=== PATIENT | female | born 1960 | race Caucasian/White ===

== ENCOUNTER 2018-01-01 13:52 | Inpatient (IN) | payer BC ==
[2018-01-01 14:22] LABS: ABS Basophils 0 10^3/ul (0-0.2); ABS Eosinophils 0.1 10^3/ul (0-0.6); ABS Monocytes 0.4 10^3/ul (0-0.8); ABS Neutrophils 2.4 10^3/ul (1.5-7.7); ABS Nucleated RBC 0 10^3/ul; Eosinophil % 1.7 % (0-6); Hematocrit 35 % (35-47); Hemoglobin 12.6 g/dl (12.0-16.0); Lymphocyte % 24.8 % (25-47); Mean Corpuscular HGB Conc 36 g/dl (31-36); Mean Corpuscular Hemoglobin 40 pg (27-31); Mean Corpuscular Volume 110 fL (80-97); Mean Platelet Volume 7.3 um3 (7.4-10.4); Nucleated Red Blood Cells % 0.2; Platelet Count 351 10^3/ul (150-450); Red Blood Count 3.15 10^6/ul (4.00-5.40); Red Cell Distribution Width 14 % (10.5-15); White Blood Count 3.9 10^3/ul (3.5-10.8)
[2018-01-01] MEDS ORDERED: Metoprolol Tartrate TAB* 25 MG PO ONE (14:25)
[2018-01-01] MEDS ORDERED: Aspirin 81 mg CHEW TAB* 81 MG TAB.CHEW PO ONE (14:25)
[2018-01-01] MEDS ORDERED: Nitroglycerin TAB 0.4 MG* 0.4 MG TAB SL ONE (14:25)
[2018-01-01 14:32] LABS: INR 1.09 (0.77-1.02)
[2018-01-01 14:45] LABS: EGFR Non-African American 91.7 (>60)
[2018-01-01 14:56] LABS: Urine Appearance Clear; Urine Blood Negative (Negative); Urine Color Yellow; Urine Ketones Negative (Negative); Urine Protein Negative (Negative); Urine Urobilinogen Negative (Negative)
--- NOTE | 2018-01-01 14:56 | RAD ---
INDICATION: Chest pain. COMPARISON: Comparison is made with a prior study from July 19, 2011. TECHNIQUE: A portable view of the chest was obtained. FINDINGS: Cardiac and mediastinal contours appear to be within normal limits. The lungs are clear. No pleural effusion is seen. IMPRESSION: NO EVIDENCE FOR ACUTE DISEASE.
--- NOTE | 2018-01-01 16:20 | ED ---
HPI Cardiac - HPI Summary HPI Summary: Patient is a 57 y/o F/ c/o chest pain onsetting two days ago. Patient reports that she was on a boat ride when she became upset by a conversation that she held. She felt anxious and afterwards, chest pain onset. Patient reports Hx of chest pain that is usually produced by anxiety. She takes zoloft. Patient reports some aggravation of chest pain with exertion and characterizes chest pain as a pressure. N/V is noted as well. Some SOB, diaphoresis, and dizziness is reported as well. Patient reports that she went to see the primary care physician today and after an EKG she was sent to the emergency department for further workup and management. On triage, pain is rated 4/10. In the room patient states that chest pain has lessened. PMHx includes autoimmune hepatitis , dyslipidemia,and herniated disc. FMHx of grandfather who of [place] at 70 is noted. On triage, nothing is noted to aggravate/alleviate Sx. Home medications and allergies are reviewed. - History of Current Complaint Chief Complaint: EDChestPainROMI Stated Complaint: CHEST PAIN Time Seen by Provider: 01/01/18 14:05 Hx Obtained From: Patient Onset/Duration: Started Days Ago - two days ago, Still Present Timing: Lasting Days - onset two days ago Current Severity: Moderate - 4/10 Pain Intensity: 4 Pain Scale Used: 0-10 Numeric - 4/10 Character: Pressure/Squeezing Aggravating Factor(s): Nothing Alleviating Factor(s): Nothing Associated Signs and Symptoms: Positive: Chest Pain, Dizziness, Shortness of Breath, Diaphoresis, Nausea, Vomiting - Allergy/Home Medications Allergies/Adverse Reactions: Allergies Allergy/AdvReac Type Severity Reaction Status Date / Time aspirin Allergy See Comment Verified 01/01/18 16:06 Home Medications: Home Medications Famotidine TAB* [Pepcid 20 MG TAB*] 20 mg PO DAILY 01/01/18 [History Confirmed 01/01/18] Ibuprofen TAB* [Motrin TAB* 400 MG] 400 mg PO Q6H PRN 01/01/18 [History Confirmed 01/01/18] Mercaptopurine TAB* [Purinethol TAB*] 75 mg PO DAILY 01/01/18 [History Confirmed 01/01/18] Sertraline* [Zoloft*] 25 mg PO DAILY 01/01/18 [History Confirmed 01/01/18] PMH/Surg Hx/FS Hx/Imm Hx Endocrine/Hematology History: Reports: Hx Thyroid Disease - Left side removed; lump on right side Denies: Hx Diabetes Cardiovascular History: Denies: Hx Hypertension Respiratory History: Denies: Hx Asthma, Hx Chronic Obstructive Pulmonary Disease (COPD) GI History: Denies: Hx Ulcer - Cancer History Hx Chemotherapy: No Hx Radiation Therapy: No - Surgical History Surgery Procedure, Year, and Place: 1974 Right knee - cartilege removed. 1980 - removal left fallopian tube. 1981 tubal . 1992 Thyroid - left side removed Infectious Disease History: No Infectious Disease History: Reports: Hx Hepatitis Denies: Hx Human Immunodeficiency Virus (HIV), Traveled Outside the [place] in Last 30 Days - Family History Known Family History: Negative: Blood Disorder - Social History Alcohol Use: Daily Alcohol Amount: 1-2 drinks Substance Use Type: Reports: None Smoking Status (MU): Former Smoker Review of Systems Positive: Skin Diaphoresis Positive: Chest Pain Positive: Shortness Of Breath Positive: Vomiting, Nausea Neurological: Other - dizziness All Other Systems Reviewed And Are Negative: Yes Physical Exam - Summary Physical Exam Summary: VITAL SIGNS: Reviewed. GENERAL: Patient is a well-developed and nourished female who is lying comfortable in the stretcher. Patient is not in any acute respiratory distress. HEAD AND FACE: No signs of trauma. No ecchymosis, hematomas or skull depressions. No sinus tenderness. EYES: PERRLA, EOMI x 2, No injected conjunctiva, no nystagmus. EARS: Hearing grossly intact. Ear canals and tympanic membranes are within normal limits. MOUTH: Oropharynx within normal limits. NECK: Supple, trachea is midline, no adenopathy, no JVD, no carotid bruit, no c- spine tenderness, neck with full ROM. CHEST: Symmetric, no tenderness at palpation LUNGS: Clear to auscultation bilaterally. No wheezing or crackles. CVS: Regular rate and rhythm, S1 and S2 present, no murmurs or gallops appreciated. ABDOMEN: Soft, non-tender. No signs of distention. No rebound no guarding, and no masses palpated. Bowel sounds are normal. EXTREMITIES: FROM in all major joints, no edema, no cyanosis or clubbing. NEURO: Alert and oriented x 3. No acute neurological deficits. Speech is normal and follows commands. SKIN: Dry and warm Triage Information Reviewed: Yes Vital Signs On Initial Exam: Initial Vitals Temp Pulse Resp BP Pulse Ox 99.1 F 70 16 167/92 100 01/01/18 13:53 01/01/18 13:53 01/01/18 13:53 01/01/18 13:53 01/01/18 13:53 Vital Signs Reviewed: Yes Diagnostics - Vital Signs Vital Signs Temp Pulse Resp BP Pulse Ox 01/01/18 14:23 100 01/01/18 14:16 18 01/01/18 13:53 99.1 F 70 16 167/92 100 - Laboratory Lab Results: Lab Results 01/01/18 01/01/18 01/01/18 Range/Units 14:09 14:09 14:09 WBC 3.9 (3.5-10.8) 10^3/ul RBC 3.15 L (4.00-5.40) 10^6/ul Hgb 12.6 (12.0-16.0) g/dl Hct 35 (35-47) % MCV 110 H (80-97) fL MCH 40 H (27-31) pg MCHC 36 (31-36) g/dl RDW 14 (10.5-15) % Plt Count 351 (150-450) 10^3/ul MPV 7.3 L (7.4-10.4) um3 Neut % (Auto) 62.3 (38-83) % Lymph % (Auto) 24.8 L (25-47) % [place] % (Auto) 10.6 H (0-7) % Eos % (Auto) 1.7 (0-6) % Baso % (Auto) 0.6 (0-2) % Absolute Neuts (auto) 2.4 (1.5-7.7) 10^3/ul Absolute Lymphs (auto) 1.0 (1.0-4.8) 10^3/ul Absolute Monos (auto) 0.4 (0-0.8) 10^3/ul Absolute Eos (auto) 0.1 (0-0.6) 10^3/ul Absolute Basos (auto) 0 (0-0.2) 10^3/ul Absolute Nucleated RBC 0 10^3/ul Nucleated RBC % 0.2 INR (Anticoag Therapy) 1.09 H (0.77-1.02) APTT 30.4 (26.0-36.3) seconds Sodium 136 (135-145) mmol/L Potassium 3.5 (3.5-5.0) mmol/L Chloride 105 (101-111) mmol/L Carbon Dioxide 26 (22-32) mmol/L Anion Gap 5 (2-11) mmol/L BUN 16 (6-24) mg/dL Creatinine 0.66 (0.51-0.95) mg/dL Est GFR ( Amer) 110.9 (>60) Est GFR (Non-Af Amer) 91.7 (>60) BUN/Creatinine Ratio 24.2 H (8-20) Glucose 116 H (70-100) mg/dL Lactic Acid (0.5-2.0) mmol/L Calcium 10.6 H (8.6-10.3) mg/dL Magnesium 1.7 L (1.9-2.7) mg/dL Total Bilirubin 0.70 (0.2-1.0) mg/dL AST 67 H (13-39) U/L ALT 54 H (7-52) U/L Alkaline Phosphatase 74 (34-104) U/L Total Creatine Kinase 463 H (10-223) U/L CK-MB (CK-2) 16.8 H (0.6-6.3) ng/mL Troponin I 2.56 H* (<0.04) ng/mL B-Natriuretic Peptide ( - 100) pg/mL Total Protein 8.8 (6.4-8.9) g/dL Albumin 4.3 (3.2-5.2) g/dL Globulin 4.5 H (2-4) g/dL Albumin/Globulin Ratio 1.0 (1-3) Triglycerides Pending Cholesterol Pending LDL Cholesterol Pending HDL Cholesterol Pending TSH 0.76 (0.34-5.60) mcIU/mL Urine Color Urine Appearance Urine pH (5-9) Ur Specific [place] (1.010-1.030) Urine Protein (Negative) Urine Ketones (Negative) Urine Blood (Negative) Urine Nitrate (Negative) Urine Bilirubin (Negative) Urine Urobilinogen (Negative) Ur Leukocyte Esterase (Negative) Urine Glucose (Negative) 01/01/18 01/01/18 01/01/18 Range/Units 14:09 14:09 14:42 WBC (3.5-10.8) 10^3/ul RBC (4.00-5.40) 10^6/ul Hgb (12.0-16.0) g/dl Hct (35-47) % MCV (80-97) fL MCH (27-31) pg MCHC (31-36) g/dl RDW (10.5-15) % Plt Count (150-450) 10^3/ul MPV (7.4-10.4) um3 Neut % (Auto) (38-83) % Lymph % (Auto) (25-47) % [place] % (Auto) (0-7) % Eos % (Auto) (0-6) % Baso % (Auto) (0-2) % Absolute Neuts (auto) (1.5-7.7) 10^3/ul Absolute Lymphs (auto) (1.0-4.8) 10^3/ul Absolute Monos (auto) (0-0.8) 10^3/ul Absolute Eos (auto) (0-0.6) 10^3/ul Absolute Basos (auto) (0-0.2) 10^3/ul Absolute Nucleated RBC 10^3/ul Nucleated RBC % INR (Anticoag Therapy) (0.77-1.02) APTT (26.0-36.3) seconds Sodium (135-145) mmol/L Potassium (3.5-5.0) mmol/L Chloride (101-111) mmol/L Carbon Dioxide (22-32) mmol/L Anion Gap (2-11) mmol/L BUN (6-24) mg/dL Creatinine (0.51-0.95) mg/dL Est GFR ( Amer) (>60) Est GFR (Non-Af Amer) (>60) BUN/Creatinine Ratio (8-20) Glucose (70-100) mg/dL Lactic Acid 0.7 (0.5-2.0) mmol/L Calcium (8.6-10.3) mg/dL Magnesium (1.9-2.7) mg/dL Total Bilirubin (0.2-1.0) mg/dL AST (13-39) U/L ALT (7-52) U/L Alkaline Phosphatase (34-104) U/L Total Creatine Kinase (10-223) U/L CK-MB (CK-2) (0.6-6.3) ng/mL Troponin I (<0.04) ng/mL B-Natriuretic Peptide 307 H ( - 100) pg/mL Total Protein (6.4-8.9) g/dL Albumin (3.2-5.2) g/dL Globulin (2-4) g/dL Albumin/Globulin Ratio (1-3) Triglycerides Cholesterol LDL Cholesterol HDL Cholesterol TSH (0.34-5.60) mcIU/mL Urine Color Yellow Urine Appearance Clear Urine pH 6.0 (5-9) Ur Specific [place] 1.010 (1.010-1.030) Urine Protein Negative (Negative) Urine Ketones Negative (Negative) Urine Blood Negative (Negative) Urine Nitrate Negative (Negative) Urine Bilirubin Negative (Negative) Urine Urobilinogen Negative (Negative) Ur Leukocyte Esterase Negative (Negative) Urine Glucose Negative (Negative) Result Diagrams: 01/01/18 14:09 01/01/18 14:09 Lab Statement: Any lab studies that have been ordered have been reviewed, and results considered in the medical decision making process. - Radiology CXR Xray Interpretation: No Acute Changes Radiology Interpretation Completed By: Radiologist - no evidence for active disease, this report was reviewed by ed physician - EKG 1402 Cardiac Rate: NL - rate of 70 BPM EKG Rhythm: Sinus Rhythm EKG Interpretation: ? of STelevation @ v2 but w/ Qwaves in v1,2,3 and Twave inversion lead1,aVL 1420 Cardiac Rate: NL - rate of 63 BPM EKG Rhythm: Sinus Rhythm EKG Interpretation: STelevation in v2,3,4,5 but w/ Qwaves in V2,3 and Twave inversion lead1,aVL Re-Evaluation - Re-Evaluation First Eval Re-Evaluation Time: 14:50 Change: Unchanged Comment: patient declines aspirin. Second Eval Re-Evaluation Time: 15:10 Change: Improved Comment: Patient's chest pain is reported to have resolved. Third Eval Re-Evaluation Time: 16:55 Change: Unchanged Comment: Patient informed of decision to admit to [facility] for further workup; patient is agreeable with this plan. Disposition - Course Assessment/Plan: This patient is a 57-year-old female with past medical history significant for autoimmune hepatitis, dyslipidemia,and herniated disc presents to the emergency department with a chief complaint of having chest pain since two days ago. Patient reports that the pain is a pressure-like pain and is experiencing nausea and vomiting and occasional shortness of breath and dizziness. Patient reports that she went to see the primary care physician today and after an EKG she was sent to the emergency department for further workup and management. At arrival to the emergency department the patient reports that the pain is lessening. Vital signs are stable. The patient was placed on a hospital monitor. The patient was given aspirin and nitroglycerin and Lopressor. First EKG shows questionable ST elevation in V2 but the patient already has Q waves in V1 and V2 and V3 with T-wave inversion in aVL and lead I. After was brought into a room in the ER emergency department room, I repeated an EKG and showed an ST elevations in V2 and V3 V4 and V5. However the patient shows an Q waves in V2 and V3. The patient also has inverted T- wave in lead 1 and aVL. At this time I discussed the case with Dr. Christianson and he will review the EKGs. Blood work shows glucose of 116, calcium 10.6, magnesium 1.7, AST 60 7/18/54 troponin of 2.56 and BNP of 307. Urinalysis is negative for UTI. Chest x-ray impression: No evidence for acute disease. After the patient was given nitroglycerin she reports pain subsided. After Dr. Christianson assess the patient he recommends for the patient to be admitted to the hospital services. I discussed my physical exam and findings with Dr. Way from the hospital services were accepted the patient for admission. - Differential Dx - Cardiopulmonary Differential Diagnoses - Cardiopulmonary: Acute Coronary, CAD, Cardiomyopathy, CHF, Chest Wall Pain - Diagnoses Provider Diagnoses: STEMI (ST elevation myocardial infarction) - Physician Notifications Discussed Care Of Patient With: Aimee Christianson Time Discussed With Above Provider: 14:28 Instructed by Provider To: Other - Patient's case was discussed with Dr. Christianson at 1428. He will come to see patient in person. 1453 -- Dr. Christianson has arrived in ED, he will evaluate patient at bedside. 1539 -- patient reports relief from chest pain, Dr. Christianson recommends admission of patient to [facility]. 1643 -- Patient' s case was discussed with Dr. Way, she accepts patient for admission to [facility]. - Critical Care Time Critical Care Time: 75-104 min Discharge - Sign-Out/Discharge Documenting (check all that apply): Patient Departure - admit - Discharge Plan Condition: Good Disposition: ADMITTED TO [facility] - Billing Disposition and Condition Condition: GOOD Disposition: Admitted to [facility] - Attestation Statements Document Initiated by Scribe: Yes Documenting Scribe: Edy Castro Provider For Whom Ray is Documenting (Include Credential): Keith Yousif MD Scribe Attestation: IEdy, scribed for Keith Yousif MD on 01/01/18 at 1850. Scribe Documentation Reviewed: Yes Provider Attestation: The documentation as recorded by the Edy norris accurately reflects the service I personally performed and the decisions made by me, Keith Yousif MD
--- NOTE | 2018-01-01 17:07 | ECHO ---
Patient: FRANCISCO CALLE [facility] Rec#: [id number] : 1960 Date: 01/01/2018 Age: 57y Height: 165 cm / 65.0 in Weight: 68.49 kg / 151.0 lbs Sex: F BSA: 1.75 Room#: -7 Admit Date#: 01/01/2018 Type: Inpatient Referring: Aimee Christianson MD Reading: Cl Ernst MD [employer]: L[facility] M[facility]UN[facility] Transthoracic Echocardiogram Indication: Myocardial Infarction BP: 167/92 HR: 53 Rhythm: Bradycardia Findings History: Anxiety, recent few days of chest discomfort. Technical Comments: The study quality is good. Completed at 1700. Left Ventricle: The left ventricular chamber size is normal. There is no left ventricular hypertrophy. There are multiple regional wall motion abnormalities. There is moderately decreased left ventricular systolic function. The estimated ejection fraction is 30-35%. Abnormal left ventricular diastolic function is observed. Abnormal left ventricular diastolic filling is observed, consistent with impaired relaxation. The mid anterior, apical septal, apical lateral, and apical inferior wall segments are hypokinetic (score 2). The apical anterior wall segment is akinetic (score 3). Overall wallmotion score index is 2.20 Left Atrium: The left atrium is mildly dilated. Right Ventricle: Moderator Band present. The right ventricular cavity size is normal. The right ventricular global systolic function is normal. Right Atrium: The right atrial cavity size is normal. Aortic Valve: The aortic valve is trileaflet. There is no evidence of aortic valve thickening. There is a trace of aortic regurgitation. There is no evidence of aortic stenosis. Mitral Valve: The mitral valve leaflets are mildly thickened. There is mild mitral regurgitation. There is no evidence of mitral stenosis. Tricuspid Valve: The tricuspid valve leaflets are normal. There is mild tricuspid regurgitation. The right ventricular systolic pressure is estimated at 42 mmHg. There is evidence of mild pulmonary hypertension. There is no tricuspid stenosis. Pulmonic Valve: The pulmonic valve appears normal. There is a trace pulmonic regurgitation. There is no pulmonic stenosis. Pericardium: There is no significant pericardial effusion. Aorta: There is mild dilatation of the ascending aorta. There is no dilatation of the aortic arch. The aortic root is normal in size. Pulmonary Artery: The main pulmonary artery appears normal. Venous: The inferior vena cava is dilated. There is a greater than 50% respiratory change in the inferior vena cava dimension. Summary: There was not any prior study for comparison. Conclusions There is no left ventricular hypertrophy. There is moderately decreased left ventricular systolic function. The estimated ejection fraction is 30-35%. Abnormal left ventricular diastolic filling is observed, consistent with impaired relaxation. The mid anterior, apical septal, apical lateral, and apical inferior wall segments are hypokinetic (score 2). The apical anterior wall segment is akinetic (score 3). The right ventricular global systolic function is normal. There is a trace of aortic regurgitation. There is mild mitral regurgitation. There is mild tricuspid regurgitation. The right ventricular systolic pressure is estimated at 42 mmHg. There is no significant pericardial effusion. Measurements Name Value Normal Range RVIDd (AP) 2D 2.7 cm (0.9 - 2.6) RVDdMajor (2D) 3.8 cm (2.2 - 4.4) RAd ISD 4CH 4.9 cm (3.4 - 4.9) RA (A4C)W 4.4 cm (2.9 - 4.6) IVSd (2D) 0.9 cm (0.6 - 1) LVPWd (2D) 0.8 cm (0.6 - 1) LVIDd (2D) 5 cm (3.6 - 5.4) LVIDs (2D) 3.6 cm - LV FS (2D) 27 % (25 - 45) Aortic Annulus 2.1 cm (1.4 - 2.6) Ao root diameter (2D) 3 cm (2.1 - 3.5) Ascending Ao 3.6 cm (2.1 - 3.4) Aortic arch 2.5 cm (1.8 - 3.4) LA dimension (AP) 2D 3.9 cm (2.3 - 3.8) LAd ISD 4CH 5.3 cm (2.9 - 5.3) LA ISD 4CH W 4.8 cm (2.5 - 4.5) Name Value Normal Range LA ESV BP (A/L) index 35 ml/m2 - Name Value Normal Range MV E-wave Vmax 0.6 m/sec - MV deceleration time 317 msec - MV A-wave Vmax 0.7 m/sec - MV E:A ratio 0.8 ratio - LV septal e' Vmax 0.06 m/sec - LV lateral e' Vmax 0.07 m/sec - LV E:e' septal ratio 10 ratio - LV E:e' lateral ratio 8.57 ratio - Name Value Normal Range AV Vmax 1.3 m/sec - AV VTI 26.2 cm - AV peak gradient 7 mmHg - AV mean gradient 3 mmHg - LVOT Vmax 0.9 m/sec - LVOT VTI 19.7 cm - LVOT peak gradient 3 mmHg - LVOT mean gradient 2 mmHg - BROOKE Vmax 0.7 m/sec - Name Value Normal Range TR Vmax 2.9 m/sec - TR peak gradient 34 mmHg - RAP 8 mmHg - RVSP 42 mmHg - IVC diameter 2.1 cm - Name Value Normal Range PV Vmax 0.8 m/sec - PV peak gradient 2 mmHg - Wallmotion BAS Not Seen BA Not Seen BAL Not Seen ENE Not Seen BI Not Seen BIS Not Seen MAS Not Seen MA Hypokinetic MAL Not Seen MIL Not Seen W[place] Not Seen MIS Not Seen Hypokinetic AA Akinetic AL Hypokinetic AI Hypokinetic APEX Akinetic
[2018-01-01] MEDS ORDERED: Acetaminophen TAB* 325 MG PO PRN (17:44)
[2018-01-01] MEDS ORDERED: Al Hydrox/Mg Hydrox/Simet LIQ* 30 ML UDC PO PRN (17:44)
[2018-01-01] MEDS ORDERED: Temazepam CAP* 15 MG PO PRN (17:44)
[2018-01-01] MEDS ORDERED: Morphine VIAL* 4 MG/ML VIAL (1 ml vial) IV PRN (17:44)
[2018-01-01] MEDS: Metoprolol Tartrate TAB* 25 MG PO SCH (19:47)
[2018-01-01] MEDS: Enoxaparin(*) 80 MG/0.8 ML SYR SUBCUT SCH (20:17)
[2018-01-01] MEDS: Captopril TAB* 12.5 MG PO SCH ×2 (20:18→22:18)
--- NOTE | 2018-01-01 22:14 | HP ---
CC: Dr. Christianson; Dr. Monge; Dr. Pruett, Gastroenterology; Dr. Gurrola * HISTORY AND PHYSICAL: DATE OF ADMISSION: 01/01/18 PRIMARY CARE PROVIDER: Dr. Shannan Gurrola. CHIEF COMPLAINT: Chest pain. HISTORY OF PRESENT ILLNESS: Kellie Key is a 57-year-old female with history of autoimmune hepatitis, who stated that she had chest pains when she was on a boat ride with her boyfriend 2 days ago. She states that she was relaxing on the boat, all of a sudden she started developing substernal pressure. It felt like an ache, lasted several hours. She denied any shortness of breath or diaphoresis with it. She stated that once she felt sick in the stomach and she vomited once. The pain resolved spontaneously, but she felt somewhat out of source for the next 2 days and she went to see her primary care provider where the EKG was performed and was abnormal, and she was sent directly to the ED for evaluation. Today, the patient stated that she had some "mild pressure" in the substernal area. Her EKG showed ST elevation. She was seen by Dr. Christianson, who noted that the patient's W[place] likely occurred 2 days ago. The patient is going to be placed in the intensive care unit with a diagnosis of myocardial infarction. PAST MEDICAL AND SURGICAL HISTORY: 1. Autoimmune hepatitis, diagnosed in 2007, on 6-mercaptopurine. 2. History of partial thyroidectomy due to abnormal thyroid nodule. 3. History of varicose vein surgery. 4. History of ectopic surgery in . MEDICATIONS: At home include: 1. Ibuprofen on a p.r.n. basis. 2. Zoloft 25 mg daily. 3. Pepcid 20 mg daily. 4. Mercaptopurine 75 mg daily. ALLERGIES: The patient listed ASPIRIN as an allergy. She had nosebleed when she was on BABY ASPIRIN in the past. FAMILY HISTORY: Positive for father with prostate cancer, grandfather with colon cancer. SOCIAL HISTORY: The patient denies any significant alcohol use. She quit smoking in 2013 and she has a history of smoking from the age of 14 to the age of 52, one pack per day. She denies any drug use. 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 She is a , has a boyfriend, who is her surrogate. Her boyfriend' s name is Brody Price. REVIEW OF SYSTEMS: Please see history of present illness. The patient stated that she noted that her exercise tolerance was lower than usual and she "really did not exercise" over the summer. She stated that taking care of her own business is a pretty stressful for her. She stated that the chest pain she actually had 2 days ago, had been occurring for the past several years. Her in 2013 and she has had chest pains even when he was still alive. She always attributed it to anxiety attacks. She denies those pains occurring with exercise. In regards to her autoimmune hepatitis, her liver function tests level have been controlled with 6-mercaptopurine. Her motor equipment commanding officer is Dr. Monge. All the remaining 12 systems were reviewed with the patient and were otherwise negative. PHYSICAL EXAMINATION GENERAL: The patient is very pleasant 57-year-old female, who is in no acute distress. Alert, awake, and oriented x3. VITAL SIGNS: Blood pressure of 138/82, heart rate of 52 and regular, respiratory rate of 17, oxygen saturation 98% on room air, temperature of 99.1. HEENT: Head: Atraumatic, normocephalic. Eyes: Pupils are equal, reactive to light and accommodation. Oropharynx clear. Mucosa moist. NECK: Supple. No JVD. No bruits bilaterally. RESPIRATORY: Clear to auscultation bilaterally. CARDIOVASCULAR: Regular rate and rhythm. No murmur. ABDOMEN: Soft, nontender. Bowel sounds are present in all 4 quadrants. EXTREMITIES: There is no edema. Pulses are +2 bilaterally. No clubbing or cyanosis. NEUROLOGIC: Speech is clear. Cranial nerves II through XII grossly intact. Motor strength is 5/5 bilaterally. SKIN: On evaluation of the skin, no ecchymotic areas or rashes noted. PSYCHIATRIC: Alert and oriented x3 with no evidence of anxiety or depression. DIAGNOSTIC STUDIES/LAB DATA: Sodium of 136, potassium 3.5, chloride 105, carbon dioxide 26, BUN 16, creatinine 0.66. AST of 67, ALT of 54, alkaline phosphatase of 74, total CPK of 463, CK-MB 16.8. Troponin of 2.5. Brain natriuretic peptide was 307. Cholesterol profile showed total cholesterol of 211, LDL of 146, HDL of 50.2, TSH of 0.76. White blood cell count of 3.9, hemoglobin of 12.6, hematocrit 35, MCV of 110, and platelets of 361. Urinalysis is unremarkable. The patient's transthoracic echocardiogram shows EF of 30% to 35%. The patient's portable chest x-ray, impression "no evidence of acute disease." The patient's EKG showed ST elevations, normal sinus rhythm with a heart rate of 64 beats per minute with ST elevations in leads V2, V3, and V4. ASSESSMENT AND PLAN: 1. Acute myocardial infarction. It appears that the patient had the worst chest pains 2 days ago. The patient was seen by the cutter head sharpener , Dr. Christianson, who recommended admission for the patient to the hospital with anticoagulation with Lovenox. The patient was recommended to use aspirin. She stated that she had nosebleeds "all the time" when on aspirin. Nevertheless, she never required any surgical intervention or ENT evaluation due to that. At this point, we will watch her closely for epistaxis, but for the time being she is going to be placed on aspirin as well as Lovenox. As per Cardiology, the patient was also started on beta-ramsey every 8 hours and captopril. It is concerning that the patient's EF now is 35%. At this point, there are no symptoms or signs of congestive heart failure. 2. In regards to the patient's autoimmune hepatitis, the patient's 6- mercaptopurine is going to be continued. 3. In regards to the depression, her Zoloft is going to be continued. 4. For her dyslipidemia, I discussed the case with the motor equipment commanding officer on- call. Due to the patient's autoimmune hepatitis, it was advised to start Lipitor at low dose of 20 mg nightly, and if the patient's LFTS continued to be unchanged in a week, the patient's Lipitor can be titrated. 5. For DVT prophylaxis, the patient is going to be placed on Lovenox as mentioned above. 6. The patient's code status is full. Her surrogate is her boyfriend, Mr. Price. TIME SPENT: Approximately 70 minutes were spent on admission of this patient, more than half of that time was spent [id number] with the patient during the interview and physical exam. [id number]/[facility] #: [id number] [facility]
--- NOTE | 2018-01-02 00:09 | CONS ---
CC: Dr. Shannan Gurrola * INTERVENTIONAL CARDIOLOGY CONSULT NOTE: DATE OF CONSULT: 01/01/18 PRIMARY CARE PHYSICIAN: Dr. Shannan Gurrola. HISTORY OF PRESENT ILLNESS: A 57-year-old woman presenting to the ER with recent anterior wall infract. Interventional Cardiology was consulted. She is an excellent historian. She relates that she has had recurring episodes of chest pain for some 10 years that she has attributed to anxiety, sometimes these would involve radiation to the jaw. On 12/30/17, 2 days ago, in the afternoon, she developed pericardial chest pressure with radiation into the jaw and some numbness in her left arm, she had nausea, vomiting, she thought it was her usual anxiety- related chest pain and did not seek medical attention. Her chest pain persisted most of the evening. The next day, on Sunday, she had a very mild chest pressure with a dull discomfort, which persisted most of the day , but did not interfere with activities. She was not short of breath, weak. She called to obtain a referral to Cardiology and was given an appointment to see Dr. Gurrola today. She saw Dr. Gurrola today and EKG today showed septal infract with QS in V1 through V3 with T- wave inversion in I and aVL, she was referred to the ER. Today, she has been chest pain free. She gives a history of having had pericarditis x3, per her history diagnosed in 1995 with a rub. She thinks she has had an echo subsequently, but none are in [facility]. She is unaware of having a previous EKG. She also has autoimmune hepatitis, on mercaptopurine; history of hyperlipidemia with an LDL of 147 last July; previous carotid bruits with Duplex here in 2013, read as suggesting possible left subclavian artery steal. She, however, has no symptoms to suggest left arm related steal phenomenon. She also has thyroid nodules and has had a partial thyroidectomy. She has not had palpitations or syncope, has a history of localized varicose vein removal, no history of peripheral edema. PAST MEDICAL HISTORY: Autoimmune hepatitis, hyperlipidemia, thyroid nodules, carotid bruit with apparently suggestion of left subclavian steal, although this is asymptomatic, GERD. SOCIAL HISTORY: She is . She stopped smoking 3 years ago. She has a significant other. FAMILY HISTORY: Positive for premature coronary artery disease. ALLERGIES: To LATEX TAPE, and SULFA. PRE-HOSPITAL MEDICATIONS: 1. Pepcid. 2. Mercaptopurine 75 mg daily. REVIEW OF SYSTEMS: General: No weight loss. No fever. CUFF CUTTER: No history of TIA or CVA. GI: No peptic ulcer disease or bleeding, notable for autoimmune hepatitis. Endocrine: No history of diabetes. Remainder all negative. PHYSICAL EXAM: In the ER, she is pain free, articulate, comfortable, an excellent historian. Her presenting BP in the ER 167/97, heart rate in the 60s to 70s. Her lungs are clear to percussion and auscultation. JVP is normal at 6. Neck is supple. HEENT is normal without xanthelasma, scleral injection, or jaundice. EOMs are normal. Cranial nerves grossly intact. Carotids are palpable , she does have a left carotid bruit or transmitted murmur. Cardia Exam: Rhythm is regular, no gallop, murmur, or rub. I cannot feel the apical impulse or RV. Abdomen: Soft, nontender. No bruits, I cannot feel the aorta. No masses. No ascites. Femoral pulses are palpable. No bruits. Radial pulses are palpable. Pedal pulses are palpable. She has no cyanosis, clubbing, or edema. Skin is warm and perfused. Psych: She is oriented and appropriate. DIAGNOSTIC STUDIES/LAB DATA: EKG shows recent septal infract with QS pattern in V1 through V3 and T-wave inversion in I and aVL. Her hemoglobin is 12.6, MCV 110. Platelet count normal. BMP normal. SGOT 67, SGPT 54. Her CPK is elevated at 463 with an MB of 16.8, troponin 2.56. BNP is elevated at 307. Chest x-ray by my review shows no infiltrate or heart failure. IMPRESSION AND PLAN: 1. Anteroseptal infract. By history, this occurred on Sunday, she will be admitted for telemetry monitoring, started on beta-blockade as well as afterload reduction. We will measure LV function with echo, trend her enzymes to ascertain the size of her infract. She may need viability imaging. Even though she has autoimmune hepatitis, her LDL is high, she would benefit from a statin. I will discuss with them further plans based on test results. 2. Autoimmune hepatitis. 3. History of thyroid nodules. 4. Left carotid bruit, apparently without obstruction in 2013. [id number]/[facility] #: [id number] [facility]TD[facility]
[2018-01-02] MEDS: Metoprolol Tartrate TAB* 25 MG PO SCH ×2 (01:50→11:16)
[2018-01-02] MEDS: Enoxaparin(*) 80 MG/0.8 ML SYR SUBCUT SCH (05:44)
[2018-01-02 06:01] LABS: ABS Basophils 0 10^3/ul (0-0.2); ABS Eosinophils 0.1 10^3/ul (0-0.6); ABS Lymphocytes 1.3 10^3/ul (1.0-4.8); ABS Monocytes 0.4 10^3/ul (0-0.8); ABS Neutrophils 1.3 10^3/ul (1.5-7.7); ABS Nucleated RBC 0 10^3/ul; Eosinophil % 2.4 % (0-6); Hematocrit 31 % (35-47); Hemoglobin 11.2 g/dl (12.0-16.0); Lymphocyte % 40.8 % (25-47); Mean Corpuscular HGB Conc 36 g/dl (31-36); Mean Corpuscular Hemoglobin 40 pg (27-31); Mean Corpuscular Volume 111 fL (80-97); Nucleated Red Blood Cells % 0.1; Platelet Count 315 10^3/ul (150-450); Red Cell Distribution Width 14 % (10.5-15); White Blood Count 3.1 10^3/ul (3.5-10.8)
[2018-01-02 06:15] LABS: EGFR Non-African American 126.3 (>60)
[2018-01-02] MEDS: Sertraline* 25 MG TAB PO SCH (08:56)
[2018-01-02] MEDS: Mercaptopurine TAB* 50 MG PO SCH (08:56)
[2018-01-02] MEDS: Famotidine TAB* 20 MG PO SCH (08:56)
[2018-01-02] MEDS: Aspirin 81 mg CHEW TAB* 81 MG TAB.CHEW PO SCH (09:20)
[2018-01-02] MEDS ORDERED: Pneumococcal *Vac Polyvalent 0.5 ML VIAL IM ONE (10:00)
[2018-01-02] MEDS: Captopril TAB* 12.5 MG PO SCH ×3 (11:20→21:05)
--- NOTE | 2018-01-02 12:23 | PN ---
Subjective Date of Service: 01/02/18 Interval History: Pt had an episode of CP last night, relieved by Nitro SL. Thought it was due to anxiety. NPO this AM for cath today Objective Active Medications: Acetaminophen (Tylenol Tab*) 650 mg PO Q4H PRN PRN Reason: FEVER/PAIN Last Admin: 01/02/18 01:28 Dose: 650 mg Al Hydrox/Mg Hydrox/Simethicone (Maalox Plus*) 30 ml PO Q6H PRN PRN Reason: INDIGESTION Aspirin (Aspirin 81 Mg Chew Tab*) 81 mg PO DAILY [facility] Last Admin: 01/02/18 09:20 Dose: Not Given Atorvastatin Calcium (Lipitor*) 20 mg PO 1700 [facility] Captopril (Capoten Tab*) 6.25 mg PO TID [facility] Last Admin: 01/02/18 11:20 Dose: 6.25 mg Enoxaparin Sodium (Lovenox(*)) 70 mg SUBCUT Q12H [facility] Last Admin: 01/02/18 05:44 Dose: 70 mg Famotidine (Pepcid Tab*) 20 mg PO DAILY [facility] Last Admin: 01/02/18 08:56 Dose: 20 mg Mercaptopurine (Purinethol Tab*) 75 mg PO DAILY [facility] Last Admin: 01/02/18 08:56 Dose: 75 mg Metoprolol Tartrate (Lopressor Tab*) 25 mg PO Q8H [facility] Last Admin: 01/02/18 11:16 Dose: Not Given Morphine Sulfate (Morphine Vial*) 1 mg IV Q4H PRN PRN Reason: PAIN - MILD Sertraline HCl (Zoloft*) 25 mg PO DAILY [facility] Last Admin: 01/02/18 08:56 Dose: 25 mg Temazepam (Restoril Cap*) 15 mg PO BEDTIME PRN PRN Reason: INSOMNIA Last Admin: 01/02/18 01:28 Dose: 15 mg Vital Signs - 8 hr 01/02/18 01/02/18 01/02/18 05:00 05:28 06:00 Temperature Pulse Rate 42 44 Respiratory 11 18 17 Rate Blood Pressure 90/64 113/70 (mmHg) O2 Sat by Pulse 96 95 Oximetry 01/02/18 01/02/18 01/02/18 07:00 08:00 08:01 Temperature 98.4 F Pulse Rate 45 46 45 Respiratory 15 16 18 Rate Blood Pressure 90/58 98/49 (mmHg) O2 Sat by Pulse 94 96 96 Oximetry 01/02/18 01/02/18 01/02/18 09:00 09:01 10:00 Temperature Pulse Rate 47 46 50 Respiratory 17 19 12 Rate Blood Pressure 124/66 (mmHg) O2 Sat by Pulse 100 96 89 Oximetry 01/02/18 11:00 Temperature Pulse Rate 49 Respiratory 17 Rate Blood Pressure 124/73 (mmHg) O2 Sat by Pulse 97 Oximetry Oxygen Devices in Use Now: None Appearance: 57 yo F in NAD, AAOx3 Eyes: No Scleral Icterus, PERRLA Ears/Nose/Mouth/Throat: NL Teeth, Lips, Gums, Mucous Membranes Moist Neck: NL Appearance and Movements; NL JVP, Trachea Midline Respiratory: Symmetrical Chest Expansion and Respiratory Effort, Clear to Auscultation Cardiovascular: NL Sounds; No Murmurs; No JVD, RRR, No Edema, - Abdominal: NL Sounds; No Tenderness; No Distention, No Hepatosplenomegaly Lymphatic: No Cervical Adenopathy Extremities: No Edema, No Clubbing, Cyanosis Skin: No Rash or Ulcers, No Nodules or Sclerosis Neurological: Alert and Oriented x 3, NL Muscle Strength and Tone Result Diagrams: 01/02/18 05:47 01/02/18 05:47 Additional Lab and Data: Lab Results 01/01/18 01/01/18 01/01/18 Range/Units 14:09 14:09 14:09 WBC 3.9 (3.5-10.8) 10^3/ul RBC 3.15 L (4.00-5.40) 10^6/ul Hgb 12.6 (12.0-16.0) g/dl Hct 35 (35-47) % MCV 110 H (80-97) fL MCH 40 H (27-31) pg MCHC 36 (31-36) g/dl RDW 14 (10.5-15) % Plt Count 351 (150-450) 10^3/ul MPV 7.3 L (7.4-10.4) um3 Neut % (Auto) 62.3 (38-83) % Lymph % (Auto) 24.8 L (25-47) % Grand % (Auto) 10.6 H (0-7) % Eos % (Auto) 1.7 (0-6) % Baso % (Auto) 0.6 (0-2) % Absolute Neuts (auto) 2.4 (1.5-7.7) 10^3/ul Absolute Lymphs (auto) 1.0 (1.0-4.8) 10^3/ul Absolute Monos (auto) 0.4 (0-0.8) 10^3/ul Absolute Eos (auto) 0.1 (0-0.6) 10^3/ul Absolute Basos (auto) 0 (0-0.2) 10^3/ul Absolute Nucleated RBC 0 10^3/ul Nucleated RBC % 0.2 INR (Anticoag Therapy) 1.09 H (0.77-1.02) APTT 30.4 (26.0-36.3) seconds Sodium 136 (135-145) mmol/L Potassium 3.5 (3.5-5.0) mmol/L Chloride 105 (101-111) mmol/L Carbon Dioxide 26 (22-32) mmol/L Anion Gap 5 (2-11) mmol/L BUN 16 (6-24) mg/dL Creatinine 0.66 (0.51-0.95) mg/dL Est GFR ( Amer) 110.9 (>60) Est GFR (Non-Af Amer) 91.7 (>60) BUN/Creatinine Ratio 24.2 H (8-20) Glucose 116 H (70-100) mg/dL Lactic Acid (0.5-2.0) mmol/L Calcium 10.6 H (8.6-10.3) mg/dL Magnesium 1.7 L (1.9-2.7) mg/dL Total Bilirubin 0.70 (0.2-1.0) mg/dL AST 67 H (13-39) U/L ALT 54 H (7-52) U/L Alkaline Phosphatase 74 (34-104) U/L Total Creatine Kinase 463 H (10-223) U/L CK-MB (CK-2) 16.8 H (0.6-6.3) ng/mL Troponin I 2.56 H* (<0.04) ng/mL B-Natriuretic Peptide ( - 100) pg/mL Total Protein 8.8 (6.4-8.9) g/dL Albumin 4.3 (3.2-5.2) g/dL Globulin 4.5 H (2-4) g/dL Albumin/Globulin Ratio 1.0 (1-3) Triglycerides Pending Cholesterol Pending LDL Cholesterol Pending HDL Cholesterol Pending TSH 0.76 (0.34-5.60) mcIU/mL Urine Color Urine Appearance Urine pH (5-9) Ur Specific Wrights (1.010-1.030) Urine Protein (Negative) Urine Ketones (Negative) Urine Blood (Negative) Urine Nitrate (Negative) Urine Bilirubin (Negative) Urine Urobilinogen (Negative) Ur Leukocyte Esterase (Negative) Urine Glucose (Negative) 01/01/18 01/01/18 01/01/18 Range/Units 14:09 14:09 14:42 WBC (3.5-10.8) 10^3/ul RBC (4.00-5.40) 10^6/ul Hgb (12.0-16.0) g/dl Hct (35-47) % MCV (80-97) fL MCH (27-31) pg MCHC (31-36) g/dl RDW (10.5-15) % Plt Count (150-450) 10^3/ul MPV (7.4-10.4) um3 Neut % (Auto) (38-83) % Lymph % (Auto) (25-47) % Grand % (Auto) (0-7) % Eos % (Auto) (0-6) % Baso % (Auto) (0-2) % Absolute Neuts (auto) (1.5-7.7) 10^3/ul Absolute Lymphs (auto) (1.0-4.8) 10^3/ul Absolute Monos (auto) (0-0.8) 10^3/ul Absolute Eos (auto) (0-0.6) 10^3/ul Absolute Basos (auto) (0-0.2) 10^3/ul Absolute Nucleated RBC 10^3/ul Nucleated RBC % INR (Anticoag Therapy) (0.77-1.02) APTT (26.0-36.3) seconds Sodium (135-145) mmol/L Potassium (3.5-5.0) mmol/L Chloride (101-111) mmol/L Carbon Dioxide (22-32) mmol/L Anion Gap (2-11) mmol/L BUN (6-24) mg/dL Creatinine (0.51-0.95) mg/dL Est GFR ( Amer) (>60) Est GFR (Non-Af Amer) (>60) BUN/Creatinine Ratio (8-20) Glucose (70-100) mg/dL Lactic Acid 0.7 (0.5-2.0) mmol/L Calcium (8.6-10.3) mg/dL Magnesium (1.9-2.7) mg/dL Total Bilirubin (0.2-1.0) mg/dL AST (13-39) U/L ALT (7-52) U/L Alkaline Phosphatase (34-104) U/L Total Creatine Kinase (10-223) U/L CK-MB (CK-2) (0.6-6.3) ng/mL Troponin I (<0.04) ng/mL B-Natriuretic Peptide 307 H ( - 100) pg/mL Total Protein (6.4-8.9) g/dL Albumin (3.2-5.2) g/dL Globulin (2-4) g/dL Albumin/Globulin Ratio (1-3) Triglycerides Cholesterol LDL Cholesterol HDL Cholesterol TSH (0.34-5.60) mcIU/mL Urine Color Yellow Urine Appearance Clear Urine pH 6.0 (5-9) Ur Specific Wrights 1.010 (1.010-1.030) Urine Protein Negative (Negative) Urine Ketones Negative (Negative) Urine Blood Negative (Negative) Urine Nitrate Negative (Negative) Urine Bilirubin Negative (Negative) Urine Urobilinogen Negative (Negative) Ur Leukocyte Esterase Negative (Negative) Urine Glucose Negative (Negative) Microbiology and Other Data: Microbiology 01/01/18 18:40 Nasal Screen MRSA (PCR) - Final Nasal Mrsa Not Detected Assess/Plan/Problems-Billing Assessment: 57 yo f with h/o autoimmune hepatitis presented with [place] - Patient Problems (1) Acute anteroseptal myocardial infarction Comment: Cont ASA, lovenox. On lopressor and Captopril as per cardiology Plan for cath today by Dr. Christianson (2) Dyslipidemia Comment: D/w GI statin use. Start Lipitor at 20 mg, F/u LFT's in one week, then if LFT's stable her statin can be titrated up (3) Autoimmune hepatitis Comment: cont Mercaptopurine LFT's stable (4) DVT prophylaxis Comment: lovenox Status and Disposition: inpatient
[2018-01-02] MEDS ORDERED: fentaNYL* 50 MCG/ML 2 ML VIAL (100 MCG VIAL) ONE ×2 (13:37→14:44)
[2018-01-02] MEDS ORDERED: Midazolam* 1 MG/ML 10 ML VIAL (10 MG) ONE (13:37)
[2018-01-02] MEDS ORDERED: nitroGLYCERIN DRIP* 25,000 MCG/250 ML BTL ONE (13:38)
[2018-01-02] MEDS ORDERED: VERAPAMIL 2.5 MG/ML 2 ML VIAL ** 5 mg/2 ml ONE (13:38)
[2018-01-02] MEDS ORDERED: Iohexol 350 (CONTRAST) 200 ML MDV IV ONE (13:38)
[2018-01-02] MEDS ORDERED: Heparin(*) 1000 UNIT/ML 10 ML VIAL CATH LAB IV ONE (13:38)
[2018-01-02] MEDS ORDERED: Lidocaine 1% INJ* 10 MG/ML 30 ML SDV ONE (13:39)
[2018-01-02] MEDS ORDERED: Heparin 2 UNITS/ML IVPREMIX* 1,000 ML BAG IV ONE (13:45)
[2018-01-02] MEDS ORDERED: NS 0.9% 1000 ML* 1,000 ML IV SCH ×2 (14:00→15:15)
[2018-01-02] MEDS ORDERED: Heparin 2 UNITS/ML IVPREMIX* 0 ML IV ONE (14:29)
[2018-01-02] MEDS: Atorvastatin* 20 MG TAB PO SCH (16:09)
[2018-01-02] MEDS ORDERED: Ondansetron INJ* 2 MG/ML VIAL IV PRN (16:47)
[2018-01-02] MEDS ORDERED: Ondansetron INJ* 2 MG/ML VIAL ONE (16:49)
[2018-01-02] MEDS ORDERED: Atorvastatin* 80 MG TAB PO SCH (17:00)
[2018-01-02] MEDS ORDERED: Metoprolol Tartrate TAB* 25 MG PO SCH (21:00)
[2018-01-03 06:26] LABS: ABS Basophils 0 10^3/ul (0-0.2); ABS Eosinophils 0.1 10^3/ul (0-0.6); ABS Lymphocytes 0.7 10^3/ul (1.0-4.8); ABS Monocytes 0.3 10^3/ul (0-0.8); ABS Neutrophils 1.9 10^3/ul (1.5-7.7); ABS Nucleated RBC 0 10^3/ul; Eosinophil % 2.5 % (0-6); Hematocrit 30 % (35-47); Hemoglobin 10.8 g/dl (12.0-16.0); Lymphocyte % 22.7 % (25-47); Mean Corpuscular HGB Conc 36 g/dl (31-36); Mean Corpuscular Hemoglobin 40 pg (27-31); Mean Corpuscular Volume 111 fL (80-97); Mean Platelet Volume 7.3 um3 (7.4-10.4); Nucleated Red Blood Cells % 0; Platelet Count 291 10^3/ul (150-450); Red Blood Count 2.69 10^6/ul (4.00-5.40); Red Cell Distribution Width 14 % (10.5-15)
[2018-01-03] MEDS: Aspirin 81 mg CHEW TAB* 81 MG TAB.CHEW PO SCH (08:17)
[2018-01-03] MEDS: Famotidine TAB* 20 MG PO SCH (08:18)
[2018-01-03] MEDS: Mercaptopurine TAB* 50 MG PO SCH (08:19)
[2018-01-03] MEDS: Sertraline* 25 MG TAB PO SCH (08:24)
[2018-01-03] MEDS ORDERED: Lisinopril TAB* 5 MG PO SCH (09:00)
[2018-01-03] MEDS ORDERED: Metoprolol Succinate XL TAB* 25 MG PO SCH ×2 (09:00)
[2018-01-03] MEDS: Atorvastatin* 20 MG TAB PO SCH (16:47)
[2018-01-03 18:16] VITALS: BP 108/58
[2018-01-03] MEDS ORDERED: Sertraline* 25 MG TAB PO SCH (21:00)
--- NOTE | 2018-01-04 16:09 | DS ---
CC: Dr. Gurrola; Dr. Olsen; Dr. Christianson; Dr. Monge * DISCHARGE SUMMARY: DATE OF ADMISSION: 01/01/18 DATE OF DISCHARGE: 01/03/18 PRIMARY CARE PROVIDER: Dr. Gurrola. DISCHARGE DIAGNOSES: 1. Cardiomyopathy with ejection fraction of 35% as well as acute coronary syndrome due to Takotsubo syndrome. 2. Dyslipidemia. SECONDARY DIAGNOSIS: History of autoimmune hepatitis, on mercaptopurine. MEDICATIONS AT DISCHARGE: Include: 1. Pepcid 20 mg daily. 2. Mercaptopurine 75 mg daily. 3. Zoloft 25 mg daily. 4. Aspirin 81 mg daily. 5. Atorvastatin 20 mg daily. LABORATORY DATA AND STUDIES PERFORMED DURING THE HOSPITAL STAY: Included on , white blood cell count of 3.0, hemoglobin of 10.8, hematocrit of 30, MCV of 111, platelets of 291. Sodium 134, potassium 4.3, chloride 105, carbon dioxide 26, BUN 15, creatinine 0.64. Liver function tests were unremarkable. Troponin peaked at 2.66 on 01/01. Brain natriuretic peptide at admission was 307. Transthoracic echocardiogram obtained on 01/01/18 showed EF of 30% to 35% with no left ventricular hypertrophy and abnormal left ventricular diastolic filling observed consistent with impaired relaxation. The mid anterior apical septal, apical lateral, and apical inferior wall segments are hypokinetic. The apical anterior wall segment is akinetic. There was mild mitral regurgitation and right ventricular systolic pressure estimated at 42 mmHg. There was no significant pericardial effusion. Cardiac catheterization was performed by Dr. Christianson on 01/02/18 showed EF of 40 % with anterolateral hypokinesis and no significant coronary artery disease otherwise and wall motion abnormality consistent with Takotsubo. That is a verbal report from Dr. Christianson. The official written report is still pending at the time of dictation. The patient was initially started on beta blockers and an KAYLIN inhibitor due to her cardiomyopathy. Unfortunately, due to relatively low systolic blood pressures as well as bradycardia after the smallest dose of beta blockers, it was decided by the time of discharge that those medications should be held. The patient is going to be discharged home without being on beta ramsey and KAYLIN inhibitor, but she will need to have that started as soon as possible, likely during her followup with Dr. Olsen if her blood pressure is improved. Please note that the patient's cardiac catheterization was performed with right radial access and the patient was also noted to have decreased pulse in the left radial artery, which is likely chronic since she is asymptomatic and has good capillary refill. The patient was also noted to have mild leukopenia and marked macrocytosis. To evaluate further, I added on vitamin B12 level as well as folate to her lab work that is still pending at the time of dictation. Please note that the patient has had elevated MCV in the past dating back to 2012. HOSPITALIZATION COURSE: Kellie Key is a 57-year-old female with history of autoimmune hepatitis for which she had been on [address] Monge, which had been reasonably stable in the past with low elevation LFTs in the past who presented to the hospital with complaints of chest pain. 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 At that point, she felt that she was anxious and she developed substernal pressure and she vomited once. Over the past couple of days she did not feel that well and she went to see her primary care provider for evaluation. There, her EKG noted ST elevation and she was referred to the ED. Her troponin initially was 2.56 and it peaked at 2.66. She was seen by Dr. Christianson in consultation who recommended cardiac catheterization, which was performed on 01/02/18 that showed grossly unremarkable coronary and wall motion abnormality consistent with Takotsubo. The patient's EF was noted to be from 35% to 40%. She had no symptoms of CHF. We tried to start the patient on beta-blockers and KAYLIN inhibitors, but unfortunately her heart rate became very bradycardic and her systolic pressures were in the 90s by the time of discharge. At that point, those medications were held as mentioned above; they are to be restarted as soon as possible if her blood pressure allows. By the time of discharge, the patient was educated about cardiac diet. She was advised not to perform strenuous exercise until cleared by Cardiology. She is to follow up with Dr. Olsen on 01/10/18 at 2:40 p.m. The patient is recommended to follow up with Dr. Gurrola in 4 to 7 days. Please also note that I spoke with our GI Service in regard to starting the patient on a statin. The patient's LDL cholesterol was 146 and total cholesterol was 211. It was recommended for us to start the patient on a low dose of Lipitor 20 mg and to recheck the patient's liver function tests in approximately a week and if that continues to be stable, to slowly increase the dose. The patient is also recommended to follow up with Dr. Monge in regard to her chronic hepatitis in conjunction with statin use. PHYSICAL EXAMINATION: At the time of discharge, blood pressure 107/58, heart rate of 58 and regular, respiratory rate 16, oxygen saturation 97% on room air, and temperature 98.6. General: The patient is a very pleasant 57-year-old female who is in no acute distress. Alert, awake, and oriented x3. HEENT: Head atraumatic, normocephalic. Eyes: Pupils are equal, reactive to light and accommodation. Oropharynx clear. Mucosa moist. Neck: Supple. No JVD, no bruits bilaterally. Cardiovascular: Regular rate and rhythm. No murmur. Respiratory: Clear to auscultation bilaterally. Abdomen: Soft and nontender. Bowel sounds present in all 4 quadrants. Extremities: There is no edema. Pulses +2 bilaterally. No clubbing or cyanosis. Neurologic: Speech clear. Cranial nerves II through XII are grossly intact. Motor strength is 5/5 bilaterally. Please note that on peripheral pulse palpation the patient had weaker pulse in the left radial area, which likely is chronic. Please note that this is a short summary of the patient's hospitalization. Please refer to further medical records for details. TIME SPENT: Approximately 45 minutes was spent on the patient's discharge. [id number]/[facility] #: [id number] [facility]
--- NOTE | 2018-01-05 09:42 | CATH ---
ADDENDUM NOW INCLUDED ON THIS REPORT CC: Dr. Gurrola * CATH REPORT: DATE OF CATH: 01/02/18 - ROOM #[id number] PRIMARY CARE PHYSICIAN: Dr. Gurrola. PROCEDURES: Right radial artery access, bilateral selective coronary cineangiography, left heart catheterization, and left ventriculography. HISTORY: A 57-year-old woman presenting with recent anteroseptal infarct with small peak troponin rise out of proportion to extensive hypo to akinesis of the anteroapical wall suggesting a significant amount of residual myocardium at jeopardy. PROCEDURE ACCESS: Right radial artery. SHEATH: 6F Slender. She had relatively small distal radial, had discomfort with catheter advancement which was overcome with sedation and wiping the catheter with lidocaine. If she needs a future radial access cath I would recommend 4 Telugu catheters. MEDICATIONS: 1. Subcu lidocaine. 2. IV Versed. 3. IV fentanyl. 4. Heparin 3000 units. 5. Verapamil 3 mg. 6. Nitroglycerin 300 mcg IA. DIAGNOSTIC CATHETER: 5F TIG4, 5F pigtail. HEMODYNAMICS: Initial AO 127/63, LV 132/1-21, no aortic valve gradient on pullback. ANGIOGRAPHY: Left main: The left main is normal, has no stenosis. LAD: The LAD is large, extends past the apex, it has a scattered luminal irregularity without significant obstructive stenosis. The LAD supplies several [id number] diagonal branches. Circumflex: The circumflex is codominant, is large, with a large bifurcated marginal which supplies most of the obtuse margin, circumflex ends with a small posterolateral. The circumflex has luminal irregularity but no significant stenosis. RCA: The RCA is moderate, codominant, has luminal irregularity but no significant stenosis, supplies a moderate PDA. There is calcification in the right coronary cusp. LV gram: She has preserved contraction of the anterior and inferior base with a typical ballooning of the anteroapical segment consistent with takotsubo's cardiomyopathy. Visually estimated LVEF 40%. CONCLUSION: 1. No significant obstructive coronary disease with diffuse, nonobstructive atherosclerosis. 2. Elevated LVEDP, otherwise normal left-sided hemodynamics. 3. Mildly reduced LV systolic function, LV gram consistent with takotsubo's. 4. Successful right radial artery access. ADDENDUM: DATE OF CATHETERIZATION: 01/02/18 After coronary angiography and left ventriculography, the pigtail was positioned in the transverse aorta. Aortic pressure was recorded. Noninvasive cuff pressure was then obtained from the left upper extremity, there was a 30 mm [id number]-tp-[id number] difference consistent with left subclavian artery stenosis, which is asymptomatic. CONCLUSION: Asymptomatic left subclavian artery stenosis. [id number]/[facility] #: [id number] A- [id number]/[facility] #: [id number] [facility] [place]
--- NOTE | 2018-01-05 10:22 | CATH ---
CATHETERIZATION REPORT: DATE OF CATHETERIZATION: 01/02/18 ADDENDUM: After coronary angiography and left ventriculography, the pigtail was positioned in the transverse aorta. Aortic pressure was recorded. Noninvasive cuff pressure was then obtained from the left upper extremity, there was a 30 mm hxax-ul-kwat difference consistent with left subclavian artery stenosis, which is asymptomatic. CONCLUSION: Asymptomatic left subclavian artery stenosis. [id number]/[facility] #: [id number] [facility]ISION[facility]
== END 2018-01-03 18:20 | disposition home or self-care (01) | DRG 190 ==
LOC: ED 13:52 → ICU 17:03 → MEDTELE 01-02 18:00
PROVIDERS: ADMIT Internal Medicine; ATTEND Internal Medicine
PROC: B2151ZZ Fluoroscopy of Left Heart using Low Osmolar Contrast (ICD-10-PCS; 2018-01-02)
PROC: 4A023N7 Measurement of Cardiac Sampling and Pressure, Left Heart, Percutaneous Approach (ICD-10-PCS; 2018-01-02)
PROC: B2111ZZ Fluoroscopy of Multiple Coronary Arteries using Low Osmolar Contrast (ICD-10-PCS; principal; 2018-01-02 14:00)
DX: I21.09 ST elevation (STEMI) myocardial infarction involving other coronary artery of anterior wall (principal); I51.81 Takotsubo syndrome; I42.9 Cardiomyopathy, unspecified; K75.4 Autoimmune hepatitis; Z88.8 Allergy status to other drugs, medicaments and biological substances; Z80.0 Family history of malignant neoplasm of digestive organs; Z80.42 Family history of malignant neoplasm of prostate; Z87.891 Personal history of nicotine dependence; F32.9 Major depressive disorder, single episode, unspecified; E78.5 Hyperlipidemia, unspecified; Z82.49 Family history of ischemic heart disease and other diseases of the circulatory system; E07.9 Disorder of thyroid, unspecified; Z72.89 Other problems related to lifestyle; F41.9 Anxiety disorder, unspecified; K21.9 Gastro-esophageal reflux disease without esophagitis; Z91.040 Latex allergy status; Z91.048 Other nonmedicinal substance allergy status; Z88.2 Allergy status to sulfonamides; R09.89 Other specified symptoms and signs involving the circulatory and respiratory systems; I70.8 Atherosclerosis of other arteries; Z79.82 Long term (current) use of aspirin; I34.0 Nonrheumatic mitral (valve) insufficiency; R00.1 Bradycardia, unspecified; I95.9 Hypotension, unspecified; D72.819 Decreased white blood cell count, unspecified; D75.89 Other specified diseases of blood and blood-forming organs; Z98.51 Tubal ligation status
CPT/HCPCS: 36415; 71045; 80048; 80053; 80061; 81003; 82550; 82553; 83605; 83735; 83880; 84443; 84484; 85025; 85610; 85730; 87641; 90686; 90732; 93005; 93306; 93458; 99156; 99157; 99285; A9270-GY; J1644; J1650; J2250; J2405; J3010